=== PATIENT | male | born 1955 | race Caucasian/White ===

== ENCOUNTER 2020-03-05 13:31 | Outpatient (CLI) | payer MEDICARE, MEDICAID, SELFPAY ==
[2020-03-05 14:10] LABS: Potassium 4.2 mmol/L (3.4-5.0)
== END 2020-03-05 13:32 | disposition home or self-care (01) ==
PROVIDERS: PCP Physician Assistant; Visit Provider Nurse Practitioner Family
DX: Z01.818 Encounter for other preprocedural examination (principal)
CPT/HCPCS: 36415; 84132